=== PATIENT | female | born 1990 | race Hispanic/Latino ===

== ENCOUNTER 2022-07-30 11:06 | Day surgery (SDC) | payer BC ==
[2022-07-30] MEDS ORDERED: hydrALAZINE 20 MG/ML VIAL SLOW IVP PRN (11:46)
[2022-07-30 12:00] VITALS: BMI 35.5
[2022-07-30 14:40] LABS: Bilirubin Neg (Negative); Blood, Urine 25 (Negative); Clarity Clear (Clear); Glucose, Urine (Dipstick) Normal (Negative); Ketone, Urine Negative (Negative); Leukocyte Negative (Negative); Nitrite Negative (Negative); Protein, Urine (Dipstick) Negative (Neg-Trace); Urobilinogen Normal mg/dL (Less than 2)
[2022-07-30 14:52] LABS: Bacteria/HPF 1+ HPF (None Seen); CAUTI Indications for Culture Pregnancy; RBC/HPF 0-3 HPF (0-3); Squamous Epithelial 0-3 HPF (0-3); WBC/HPF 0-3 HPF (0-3)
[2022-07-30 14:54] LABS: Mucous/LPF Rare LPF (<2+)
[2022-07-30 14:55] LABS: Urine Culture Reflex Yes Yes
== END 2022-07-30 15:15 | disposition home or self-care (01) ==
LOC: CSHLD/OP 11:06
PROVIDERS: ATTEND Family Medicine
DX: O47.1 False labor at or after 37 completed weeks of gestation (principal); O99.891 Other specified diseases and conditions complicating pregnancy; R35.0 Frequency of micturition; O24.419 Gestational diabetes mellitus in pregnancy, unspecified control; O99.613 Diseases of the digestive system complicating pregnancy, third trimester; K21.9 Gastro-esophageal reflux disease without esophagitis; O99.213 Obesity complicating pregnancy, third trimester; E66.9 Obesity, unspecified; Z79.84 Long term (current) use of oral hypoglycemic drugs; Z86.59 Personal history of other mental and behavioral disorders; Z83.3 Family history of diabetes mellitus; Z3A.37 37 weeks gestation of pregnancy
CPT/HCPCS: 36416; 81001; 87086; 99285

== ENCOUNTER 2022-07-31 01:25 | Inpatient (IN) | payer BC ==
[2022-07-31] MEDS ORDERED: Lidocaine 1% (PF) 30 ML VIAL ONE (01:37)
[2022-07-31] MEDS ORDERED: NS w/ Oxytocin 30 units 500 ML ONE (01:37)
[2022-07-31 03:00] VITALS: BMI 35.2
[2022-07-31] MEDS ORDERED: Promethazine HCl 25 MG/ML VIAL IM PRN (03:17)
[2022-07-31] MEDS ORDERED: hydrALAZINE 20 MG/ML VIAL SLOW IVP PRN ×2 (03:17→03:21)
[2022-07-31] MEDS ORDERED: Ondansetron PF 4 MG/2 ML Vial IVP PRN ×2 (03:17→03:21)
[2022-07-31] MEDS ORDERED: Lidocaine 1% (PF) 30 ML VIAL SC PRN (03:20)
[2022-07-31] MEDS ORDERED: Boostrix 0.5 ML (Tdap) VIAL (>/=7 yrs of age) IM ONE (03:21)
[2022-07-31] MEDS ORDERED: Milk Of Magnesia 30 ML UDCUP PO PRN (03:21)
[2022-07-31] MEDS ORDERED: Bisacodyl 10 MG SUPP PR PRN (03:21)
[2022-07-31] MEDS ORDERED: NS w/ Oxytocin 30 units 500 ML IV SCH (03:30)
[2022-07-31 03:53] LABS: Hemoglobin 13.7 g/dL (12.0-15.5); Mean Corpuscular HGB CONC 34.4 g/dL (32.0-36.0); Mean Corpuscular Hemoglobin 31.9 pg (27.0-33.0); Mean Corpuscular Volume 92.8 fl (81.6-98.3); Mean Platelet Volume 12.3 fl (7.4-10.4); Platelet Count 282 10x3/uL (150-450); RBC Distribution Width 13.7 % (11.5-14.5); Red Blood Cell (RBC) Count 4.29 10x6/uL (3.90-5.03); White Blood Cell (WBC) Count 11.2 10x3/uL (3.5-10.5)
[2022-07-31 04:05] LABS: HBSAg Index 0.21 S/CO (0-0.99); Hep B Surf Ag - L&D Non-Reactive S/CO (NonReactive); Syphilis Antibody Nonreactive (Nonreactive); Syphilis Antibody Index 0.02 S/CO (<1.00 Non-Reactive)
[2022-07-31] MEDS: Ibuprofen 800 MG TAB PO SCH ×3 (04:38→21:30)
[2022-07-31] MEDS: Ferrous Sulfate 325 MG TAB PO SCH ×2 (09:06→16:45)
[2022-07-31] MEDS: Prenatal Vitamin 1 TAB PO SCH (10:02)
[2022-07-31] MEDS: Docusate 100 MG CAP PO SCH ×2 (10:02→21:30)
[2022-07-31] MEDS ORDERED: Benzocaine-Menthol 82.5 ML CAN TOP PRN ×2 (12:04→12:51)
[2022-08-01] MEDS: Ibuprofen 800 MG TAB PO SCH (05:34)
[2022-08-01 07:58] VITALS: BP 127/69; TEMP 98
[2022-08-01] MEDS: Ferrous Sulfate 325 MG TAB PO SCH (08:20)
[2022-08-01] MEDS: Prenatal Vitamin 1 TAB PO SCH (08:23)
[2022-08-01] MEDS: Docusate 100 MG CAP PO SCH (08:24)
== END 2022-08-01 11:20 | disposition home or self-care (01) | DRG 807 ==
LOC: CSHLD/OP 01:25 → CSHLD 01:37 → CSHPP 05:00
PROVIDERS: ADMIT Family Medicine; ATTEND Family Medicine
PROC: 10E0XZZ Delivery of Products of Conception, External Approach (ICD-10-PCS; principal; 2022-07-31)
PROC: 0KQM0ZZ Repair Perineum Muscle, Open Approach (ICD-10-PCS; 2022-07-31)
DX: O62.3 Precipitate labor (principal); Z37.0 Single live birth; O70.1 Second degree perineal laceration during delivery; O99.214 Obesity complicating childbirth; E66.9 Obesity, unspecified; O99.62 Diseases of the digestive system complicating childbirth; O24.425 Gestational diabetes mellitus in childbirth, controlled by oral hypoglycemic drugs; K21.9 Gastro-esophageal reflux disease without esophagitis; Z3A.38 38 weeks gestation of pregnancy; Z79.84 Long term (current) use of oral hypoglycemic drugs
CPT/HCPCS: 36416; 81001; 85027; 86780; 86850; 86900; 86901; 87086; 87340; 88307; 99285; J2001; J2590